=== PATIENT | female | born 1980 | race Caucasian/White ===

== ENCOUNTER 2020-09-27 15:45 | Emergency (ER) | payer MEDICAID ==
[~2020-09-27] VITALS: Ht 152.4 cm; Wt 68.2 kg
[2020-09-27 15:52] VITALS: BP 123/83
[2020-09-27] MEDS ORDERED: LIDOcaine 1% W/epiNEPHrine 1:200,000 10ml vial IJ ONE (15:55)
[2020-09-27] MEDS ORDERED: acetaminophen 325mg tablet PO ONE (15:55)
[2020-09-27] MEDS ORDERED: DOXY100C76 PO (16:26)
[2020-09-27] MEDS ORDERED: SULF1TAB49 PO (16:26)
[2020-09-27] MEDS ORDERED: CLIN150C2 PO (16:26)
[2020-09-27] MEDS ORDERED: ONDA4TAB6 PO ×3 (16:26→16:40)
[2020-09-27] MEDS ORDERED: AMOX-580 PO ×3 (16:26→16:40)
[2020-09-27] MEDS ORDERED: HYDR-3964 PO ×3 (16:26→16:40)
[2020-09-27] MEDS ORDERED: CIPR-259 PO (16:26)
[2020-09-27] MEDS: rabies vaccine (PCEC)/PF 2.5 unit kit IMVAC ONE ×2 (19:06→19:44)
[2020-09-27] MEDS: rabies immune globulin/PF 150 unit/ml inj IMVAC STA ×2 (19:08→19:44)
[2020-09-27] MEDS ORDERED: amox tr/potassium clavulanate 875/125mg TAB PO ONE (19:50)
== END 2020-09-27 20:12 | disposition home or self-care (01) ==
LOC: ER 15:46
DX: S61.215A Laceration without foreign body of left ring finger without damage to nail, initial encounter (principal); S67.195A Crushing injury of left ring finger, initial encounter; Z79.2 Long term (current) use of antibiotics; Z79.899 Other long term (current) drug therapy; W54.0XXA Bitten by dog, initial encounter; Y93.89 Activity, other specified; Y92.89 Other specified places as the place of occurrence of the external cause; Y99.8 Other external cause status
CPT/HCPCS: 12001; 73140; 90375; 90675; 99283

== ENCOUNTER 2020-09-30 09:05 | Emergency (ER) | payer MEDICAID ==
[~2020-09-30] VITALS: Ht 152.4 cm; Wt 68.2 kg
[~2020-09-30 09:05] MED LIST: AMOX-580 PO; HYDR-3964 PO; ONDA4TAB6 PO
[2020-09-30 09:09] VITALS: BP 134/79
[2020-09-30] MEDS ORDERED: rabies vaccine (PCEC)/PF 2.5 unit kit IMVAC ONE (10:00)
[2020-09-30] MEDS ORDERED: GABA-534 PO ×2 (10:11→10:13)
[2020-09-30] MEDS ORDERED: ketorolac trometh inj. 60 MG/2 ML VIAL IM ONE (10:15)
[2020-09-30] MEDS ORDERED: BACI28.42 TP (10:23)
== END 2020-09-30 10:29 | disposition home or self-care (01) ==
LOC: ER 09:06
DX: S61.215D Laceration without foreign body of left ring finger without damage to nail, subsequent encounter (principal); F17.200 Nicotine dependence, unspecified, uncomplicated; Z48.00 Encounter for change or removal of nonsurgical wound dressing; Z20.3 Contact with and (suspected) exposure to rabies; Z79.899 Other long term (current) drug therapy; W54.0XXD Bitten by dog, subsequent encounter
CPT/HCPCS: 90675; 96372; 99283; J1885

== ENCOUNTER 2020-10-10 07:44 | Emergency (ER) | payer MEDICAID ==
[~2020-10-10] VITALS: Ht 152.4 cm; Wt 69.0 kg
[~2020-10-10 07:44] MED LIST changes: +BACI28.42 TP; +GABA-534 PO
[2020-10-10 07:47] VITALS: BP 139/88
== END 2020-10-10 08:41 | disposition home or self-care (01) ==
LOC: ER 07:44
DX: Z48.01 Encounter for change or removal of surgical wound dressing (principal); Z79.899 Other long term (current) drug therapy
CPT/HCPCS: 99281